=== PATIENT | female | born 1930 | race Caucasian/White ===

== ENCOUNTER 2018-08-28 11:19 | Emergency (ER) | payer MEDICARE, BC ==
[~2018-08-28] VITALS: Ht 165.1 cm; Wt 59.1 kg
[~2018-08-28 11:19] MED LIST: BAYER CHEWABLE81 MG PO; CALCIUM 500 + D1 TAB PO; COREG 3.1253.125 MG PO; COUMADIN3 MG PO; COUMADIN4 MG PO; FISH OIL 1,0001 CA1 PO; FLAXSEED OIL1000 MG PO; HYDROCHLOROTH12.5 M1 PO; LINZESS145 MCG PO; MAGNESIUM GLUC500 M1 PO; NEXIUM20 MG PO; VITAMIN B-12500 MC1 PO; VITAMIN C1000 MG PO
[2018-08-28 11:20] VITALS: BP 111/68; Ht 165.1 cm; Wt 59.1 kg
[2018-08-28] MEDS ORDERED: SENNA8.8 MG/5 M PO (11:36)
[2018-08-28] MEDS ORDERED: FUROSEMIDE20 MG PO (11:37)
[2018-08-28] MEDS ORDERED: MYLANTA / MAALO30 ML PO (11:38)
[2018-08-28] MEDS ORDERED: AFRIN15 ML NASAL (11:39)
[2018-08-28] MEDS ORDERED: GUAIFENESI100 MG/5 M PO (11:39)
[2018-08-28] MEDS ORDERED: NITROQUICK0.4 MG SL (11:40)
[2018-08-28 12:59] LABS: BASOPHILS 0.3 % (0-2); EOSINOPHILS 2.1 % (0-7); HEMATOCRIT 38.7 % (36.0-48.0); HEMOGLOBIN 12.5 g/dL (12-16); IMMATURE GRANULOCYTES 0.2 % (0-5); LYMPHOCYTES 12.4 % (15-50); MCH 28.9 pg (26.0-34.0); MCHC 32.3 g/dL (31.0-37.0); MCV 89.4 fL (80.0-100.0); MEAN PLATELET VOLUME 10.4 fL (7.4-10.4); MONOCYTES 7.7 % (2-11); NEUTROPHILS 77.3 % (40-80); PLATELET COUNT 153 10x3/uL (130-400); RBC 4.33 10x6/uL (4.00-5.40); RDW 15.2 % (11.5-14.5); WBC 5.7 10x3/uL (4.8-10.8)
[2018-08-28 13:10] LABS: APTT 30.9 SECONDS (22.8-39.4); INR 1.85 (0.85-1.17); PROTIME 20.7 SECONDS (11.6-15.0)
[2018-08-28 13:13] LABS: ALBUMIN 3.3 g/dL (3.4-5.0); ANION GAP 12.8 mmol/L (8-16); BILIRUBIN - TOTAL 0.64 mg/dL (0.2-1.3); CALCIUM 8.7 mg/dL (8.5-10.1); CARBON DIOXIDE 31.9 mmol/L (21.0-32.0); CREATININE - SERUM 0.9 mg/dL (0.6-1.3); POTASSIUM - SERUM 3.7 mmol/L (3.5-5.1)
[2018-08-28 13:22] LABS: TROPONIN-I 0.018 ng/mL (0.000-0.060)
--- NOTE | 2018-08-31 10:55 | CN ---
PATIENT NAME:JOAQUIM MENDEZ MEDICAL RECORD: [id number] : 34 LOCATION:.ER ADMIT DATE: ACCOUNT: [id number] CONSULTING PHYSICIAN: LORRI HUTCHINS MD REFERRING PHYSICIAN: STEPHANIE ELLSWORTH MD DATE OF CONSULTATION: 08/28/2018 Cardiology Consultation DIAGNOSES: 1. Nosebleed. 2. Coumadin anticoagulation. 3. Atrial fibrillation. 4. Coronary artery disease. 5. Status post coronary artery bypass graft surgery. 6. Valvular heart disease, mitral regurgitation. HISTORY OF PRESENT ILLNESS: Mrs. Mendez presents after 2 nose bleeds this morning. She is on Coumadin. Her INR, however, is only 1.87. She is on oxygen at the assisted living facility and this is not put through any hydration. She has not had any further nosebleeds today. Her H&H was stable. PHYSICAL EXAMINATION: GENERAL APPEARANCE: Well-nourished, well-developed, appears stated age. Level of distress, comfortable. PSYCHIATRIC: Mental status, alert, normal affect. Orientation, oriented to time, place and person. EYES: Lids and conjunctiva, noninjected. No discharge, no pallor. ENT: Lips, teeth, gums, normal dentition. Oropharynx, no cyanosis, no pallor. NECK: Carotid arteries, bilateral normal upstroke, no bruits, no thrills. JUGULAR VEINS: No jugular venous pressure or distention. CERVICAL LYMPH NODES: Nontender, nonenlarged. THYROID: Not enlarged. Nontender. No nodules. LUNGS: Respiratory effort, unlabored. CHEST: Normal curvature. No thoracic deformity. No chest wall tenderness. Percussion, resonant. Auscultation, clear. No wheezes, no rales, no rhonchi. CARDIOVASCULAR: Precordial exam, nondisplaced. No heaves or pericardial thrills. Rate and rhythm, regular. Heart sounds, normal S1, normal S2. No S3, no gallop, no rub. Systolic murmur, not heard. Diastolic murmur, not heard. EXTREMITIES: No cyanosis, no edema. Peripheral pulses, full and equal in all extremities, except as noted. No bruits appreciated. ABDOMEN: Soft, nondistended. Normal aorta. No bruit. Nontender. No masses. Liver, nontender, no hepatomegaly. Spleen, nontender, no splenomegaly. MUSCULOSKELETAL: No joint tenderness. No joint swelling. No erythema. NEUROLOGICAL: Normal gait, normal strength, normal tone. SKIN: Warm and dry. OVERALL IMPRESSION: Nose bleeds. No cardiac symptomatology. At this time, I would continue her current medications. Continue her current Coumadin dose. Use [address] or Afrin nasal spray if she has recurrent nose bleeds and try to hydrate her oxygen for the future. TRANSINT:[id number] Voice Confirmation ID: [id number] DOCUMENT ID: [id number] CONSULT REPORT [id number] JOAUQIM MENDEZ JEFFREY MD at 1055 CC: [id number] DICTATION DATE: 08/28/18 1519 ENVIRONMENTAL MANAGER: 08/28/182027 DEP ER 08/28/[address] [address]
== END 2018-08-28 17:00 ==
LOC: D.ER 11:19
PROVIDERS: Family Medicine
DX: R04.0 Epistaxis (principal); I48.91 Unspecified atrial fibrillation; Z79.01 Long term (current) use of anticoagulants

== ENCOUNTER → 2018-09-01 16:32 | Outpatient (CLI) | payer MEDICARE, BC ==
[2018-08-28 11:20] VITALS: BMI 21.6
[~2018-09-01 16:32] MED LIST changes: +AFRIN15 ML NASAL; +FUROSEMIDE20 MG PO; +GUAIFENESI100 MG/5 M PO; +MYLANTA / MAALO30 ML PO; +NITROQUICK0.4 MG SL; +SENNA8.8 MG/5 M PO
[2018-09-01 17:22] LABS: CALCIUM 8.8 mg/dL (8.5-10.1); CARBON DIOXIDE 34.3 mmol/L (21.0-32.0); CREATININE - SERUM 1.2 mg/dL (0.6-1.3); POTASSIUM - SERUM 3.3 mmol/L (3.5-5.1)
== END | disposition home or self-care (01) ==
LOC: D.LABREF 16:32
PROVIDERS: ATTEND Nurse Practitioner Adult Health
DX: I50.9 Heart failure, unspecified (principal)